=== PATIENT | male | born 1955 | race Native Hawaiian/Other Pacific Islander ===

== ENCOUNTER 2022-09-02 13:54 | Outpatient (CLI) | payer OTHER | END 2022-09-02 20:34 | disposition home or self-care (01) | LOC: CT 13:54 | PROVIDERS: ATTEND Internal Medicine | DX: L03.116 Cellulitis of left lower limb (principal); R60.0 Localized edema; E11.65 Type 2 diabetes mellitus with hyperglycemia; Z79.4 Long term (current) use of insulin ==